=== PATIENT | female | born 1990 | race African-American/Black ===

== ENCOUNTER 2021-04-14 03:16 | Emergency (ER) | payer OTHER ==
[2021-04-14 04:09] VITALS: BP 130/87; PULSE 118; TEMP 99.6; BMI 49.9
[2021-04-14] MEDS ORDERED: ACETAMINOPHEN 325 MG TABLET (FP) PO ONE (05:26)
[2021-04-15 17:09] LABS: SARS-CoV-2 NAA Detected (Not Detected)
== END 2021-04-14 06:08 | disposition home or self-care (01) ==
LOC: JER 03:16
DX: R05.9 Cough, unspecified (principal); Z11.52 Encounter for screening for COVID-19
CPT/HCPCS: 87804; 99283-25; C9803; U0003; U0005

== ENCOUNTER 2021-04-18 22:23 | Emergency (ER) | payer OTHER ==
[2021-04-18 22:56] VITALS: BMI 49.9
[2021-04-18] MEDS ORDERED: DEXAMETHASONE SOD PHOSPHATE 10 MG/1 ML VIAL IVPUSH ONE (23:52)
[2021-04-18] MEDS ORDERED: SODIUM CHLORIDE 0.9% 500 ML INFUS.BAG IV ONE (23:52)
[2021-04-18] MEDS ORDERED: ACETAMINOPHEN 1000 MG/100 ML BAG IVPB ONE (23:57)
[2021-04-19] MEDS ORDERED: DEXAMETHASONE SOD PHOSPHATE 10 MG/1 ML VIAL ONE (00:02)
[2021-04-19] MEDS ORDERED: ACETAMINOPHEN INJECTION 100 ML IVPB ONE (00:03)
[2021-04-19 01:00] LABS: HEMATOCRIT 39.8 % (32.4-45.2); HEMOGLOBIN 12.5 GM/dL (10.7-15.3); MCH 21.5 pg (25.7-33.7); MCHC 31.4 g/dl (32.0-36.0); MEAN CELL VOLUME 68.7 fl (80-96); MEAN PLT VOLUME 8.3 fl (7.5-11.1); PLATELET COUNT 174 10^3/uL (134-434); RBC 5.79 M/mm3 (3.60-5.2); RDW 14.4 % (11.6-15.6); WHITE BLOOD COUNT 2.7 K/mm3 (4.0-10.0)
[2021-04-19 01:20] LABS: ALBUMIN 3.6 g/dl (3.4-5.0); BLOOD UREA NITROGEN 7.4 mg/dL (7-18)
[2021-04-19 01:23] LABS: CREATININE 0.7 mg/dL (0.55-1.3)
[2021-04-19 01:24] LABS: BILIRUBIN,TOTAL 0.3 mg/dL (0.2-1)
[2021-04-19 02:10] LABS: ANISOCYTOSIS 2+; MACROCYTOSIS 0; PLATELET ESTIMATE NORMAL; TARGET CELLS 1+
[2021-04-19 05:15] LABS: INR 1.16 (0.83-1.09); PROTHROMBIN TIME (PATIENT) 13.4 SEC (9.7-13.0)
[2021-04-19 06:00] VITALS: BP 122/86; PULSE 95; TEMP 98.3
[2021-04-19 08:32] LABS: ACTIVATED PTT 31.9 SECONDS (25.2-36.5)
== END 2021-04-19 06:00 | disposition home or self-care (01) ==
LOC: JER 22:23
PROC: 3E0333Z Introduction of Anti-inflammatory into Peripheral Vein, Percutaneous Approach (ICD-10-PCS; principal; 2021-04-18)
PROC: 3E033GC Introduction of Other Therapeutic Substance into Peripheral Vein, Percutaneous Approach (ICD-10-PCS; 2021-04-18)
DX: U07.1 COVID-19 (principal); R00.0 Tachycardia, unspecified; R50.9 Fever, unspecified
CPT/HCPCS: 36415; 71045-TC-FY; 80053; 82550; 82553; 82728; 83605; 83615; 84484; 85025; 85610; 85730; 86140; 87040; 93005; 93010; 99285-25; J1100